=== PATIENT | male | born 1940 | race Caucasian/White ===

== ENCOUNTER 2017-09-08 17:00 | Inpatient (IN) | payer MEDICARE ==
[~2017-09-08] VITALS: Ht 172.7 cm; Wt 80.6 kg
[~2017-09-08 17:00] MED LIST: ALEN70TA13; ASPI-1265 PO; CALC-942 PO; CLOP75TA35 PO; DOCU-28 PO; FLO0.4C PO; HC A30CR2 RC; HYDR-3964 PO; HYDR-565 PO; HYDR200T84 PO; IBUP-1986 PO; KEN0.1O TP; LISI-234 PO; LISI-600 PO; PRED1TAB PO; SILD100T PO
[2017-09-08 20:28] LABS: BASOPHILS % (AUTO) 0.3 % (0-1); EOSINOPHILS # (AUTO) 0.2 X10'3 (0-0.9); HEMATOCRIT 42.6 % (42.0-52.0); HEMOGLOBIN 14.4 g/dl (14.0-17.9); LYMPHOCYTES # (AUTO) 1.9 X10'3 (1.1-4.8); LYMPHOCYTES % (AUTO) 23.1 % (21-51); MEAN CORPUSCULAR HEMOGLOBIN 30.9 PG (27.0-31.0); MEAN CORPUSCULAR HGB CONC 33.8 % (33.0-36.5); MEAN CORPUSCULAR VOLUME 91.4 FL (78-98); MEAN PLATELET VOLUME 7.2 FL (7.4-10.4); MONOCYTES # (AUTO) 0.8 X10'3 (0-0.9); MONOCYTES % (AUTO) 9.9 % (2-12); NEUTROPHILS # (AUTO) 5.2 X10'3 (1.8-7.7); NEUTROPHILS % (AUTO) 64.7 % (42-75); PLATELET COUNT 266 X10'3 (140-440); RED BLOOD COUNT 4.67 X10'6 (4.70-6.10); RED CELL DISTRIBUTION WIDTH 13.9 % (11.5-14.5)
[2017-09-08 20:41] LABS: INR 1.1 INR; PARTIAL THROMBOPLASTIN TIME 26 SECONDS (22-32); PROTHROMBIN TIME 11.3 SECONDS (9.0-12.0)
[2017-09-08 20:44] LABS: ANION GAP 8 (8-16); BILIRUBIN,TOTAL 0.7 MG/DL (0.1-1.0); BLOOD UREA NITROGEN 14 MG/DL (7-18); BUN/CREATININE RATIO 13.1 (5.4-32.0); CALCIUM 9.5 MG/DL (8.5-10.1); CHLORIDE 102 MMOL/L (99-107); CREATININE 1.07 MG/DL (0.60-1.10); GLUCOSE 101 MG/DL (70-104); POTASSIUM 3.8 MMOL/L (3.5-5.1); SODIUM 140 MMOL/L (135-145); eGFR 67 ML/MIN
[2017-09-08 20:45] LABS: ALANINE AMINOTRANSFERASE 26 U/L (12-78); ALBUMIN 4.5 G/DL (3.4-5.0); ALBUMIN/GLOBULIN RATIO 1.3 (1.1-1.5); ALKALINE PHOSPHATASE 50 IU/L (46-116); ASPARTATE AMINO TRANSFERASE 17 U/L (10-37)
[2017-09-08] MEDS ORDERED: temazepam 15mg capsule PO PRN (21:00)
[2017-09-08] MEDS ORDERED: LISI1TAB13 PO (21:09)
[2017-09-08] MEDS ORDERED: LISI-600 PO (21:09)
[2017-09-08] MEDS ORDERED: COLC0.6C3 (21:14)
[2017-09-08] MEDS ORDERED: VITC500T PO (21:14)
[2017-09-08] MEDS ORDERED: CAL1TABL8 PO (21:14)
[2017-09-08] MEDS ORDERED: FINA5TAB11 PO (21:14)
[2017-09-08] MEDS ORDERED: CARV-49 PO (21:14)
[2017-09-08] MEDS ORDERED: MULT-1141 PO (21:14)
[2017-09-08] MEDS ORDERED: CHOL10002 PO (21:14)
[2017-09-08] MEDS ORDERED: ALLO100T PO (21:14)
[2017-09-08] MEDS ORDERED: AMLO2.5T PO (21:14)
[2017-09-08] MEDS ORDERED: SIMV20TA5 PO (21:14)
[2017-09-08] MEDS ORDERED: lisinopril 10 MG tablet PO ONE (21:45)
[2017-09-08] MEDS ORDERED: amoxicillin 250mg capsule PO ONE (21:45)
[2017-09-08] MEDS ORDERED: metoprolol tartrate 1mg/ml inj IV ONE (21:45)
[2017-09-08] MEDS ORDERED: metoprolol tartrate 50mg tablet PO STA (21:56)
[2017-09-08] MEDS ORDERED: ipratropium/albuterol 3ml nebule IH PRN (23:00)
[2017-09-08] MEDS ORDERED: dextrose 5%-1/2 normal saline 1,000 ML IV SCH (23:02)
[2017-09-08] MEDS ORDERED: HYDROcodone/acetaminophen 5mg/325mg tablet PO PRN (23:05)
[2017-09-08] MEDS ORDERED: metoclopramide 5 mg/ml inj IV PRN (23:05)
[2017-09-08] MEDS ORDERED: acetaminophen 325mg tablet PO PRN (23:05)
[2017-09-08] MEDS ORDERED: HYDROcodone/acetaminophen 10/325mg tab PO PRN (23:05)
[2017-09-08] MEDS ORDERED: diphenhydrAMINE 50 mg/ml inj IV PRN (23:05)
[2017-09-08] MEDS ORDERED: mag hydrox/Alum hydrox/simeth 30ml oral suspension PO PRN (23:05)
[2017-09-08] MEDS ORDERED: magnesium hydroxide 30ml (MOM) UD suspension PO PRN (23:05)
[2017-09-08] MEDS ORDERED: morphine sulfate 8 MG/ML SYRINGE IV PRN ×2 (23:05)
[2017-09-08] MEDS ORDERED: diphenhydrAMINE 25mg capsule PO PRN (23:05)
[2017-09-08] MEDS ORDERED: non-formulary drug (Alendronate Sodium 70 MG) SCH (23:05)
[2017-09-08] MEDS ORDERED: bisacodyl 10mg suppository rectal RC PRN (23:05)
[2017-09-08] MEDS ORDERED: acetaminophen 650mg rectal suppository RC PRN (23:05)
[2017-09-08] MEDS ORDERED: ondansetron/PF 4mg/2ml inj IV PRN (23:05)
[2017-09-08] MEDS ORDERED: azithromycin 250mg tablet PO SCH (23:43)
[2017-09-09 01:34] VITALS: BP 160/80
[2017-09-09] MEDS: cefTRIAXone 1g/NS 100ml IVPB 100 ML IV SCH ×2 (01:47→08:15)
[2017-09-09 02:42] LABS: BASOPHILS % (AUTO) 0.3 % (0-1); EOSINOPHILS # (AUTO) 0.2 X10'3 (0-0.9); EOSINOPHILS % (AUTO) 2.3 % (0-6); HEMATOCRIT 38.3 % (42.0-52.0); LYMPHOCYTES # (AUTO) 1.5 X10'3 (1.1-4.8); LYMPHOCYTES % (AUTO) 15.2 % (21-51); MEAN CORPUSCULAR HEMOGLOBIN 30.9 PG (27.0-31.0); MEAN CORPUSCULAR HGB CONC 33.8 % (33.0-36.5); MEAN CORPUSCULAR VOLUME 91.3 FL (78-98); MEAN PLATELET VOLUME 7.3 FL (7.4-10.4); MONOCYTES # (AUTO) 1.3 X10'3 (0-0.9); MONOCYTES % (AUTO) 12.8 % (2-12); NEUTROPHILS # (AUTO) 6.8 X10'3 (1.8-7.7); NEUTROPHILS % (AUTO) 69.4 % (42-75); PLATELET COUNT 244 X10'3 (140-440); RED CELL DISTRIBUTION WIDTH 14.1 % (11.5-14.5); WHITE BLOOD COUNT 9.8 X10'3 (4.5-11.0)
[2017-09-09 02:58] LABS: ALANINE AMINOTRANSFERASE 24 U/L (12-78); ALBUMIN 3.6 G/DL (3.4-5.0); ALBUMIN/GLOBULIN RATIO 1.2 (1.1-1.5); ALKALINE PHOSPHATASE 38 IU/L (46-116); ANION GAP 7 (8-16); ASPARTATE AMINO TRANSFERASE 16 U/L (10-37); BILIRUBIN,TOTAL 0.5 MG/DL (0.1-1.0); BLOOD UREA NITROGEN 17 MG/DL (7-18); BUN/CREATININE RATIO 17.7 (5.4-32.0); CALCIUM 8.8 MG/DL (8.5-10.1); CHLORIDE 105 MMOL/L (99-107); CREATININE 0.96 MG/DL (0.60-1.10); GLUCOSE 108 MG/DL (70-104); POTASSIUM 3.3 MMOL/L (3.5-5.1); SODIUM 141 MMOL/L (135-145); TOTAL CARBON DIOXIDE 28.8 MMOL/L (24-32); TOTAL PROTEIN 6.6 G/DL (6.4-8.2); eGFR 76 ML/MIN
[2017-09-09 05:00] VITALS: BP 169/81
[2017-09-09 07:30] VITALS: BP 150/87
[2017-09-09] MEDS ORDERED: pantoprazole 40mg Tablet.DR PO SCH (07:30)
[2017-09-09] MEDS ORDERED: amLODIPine 2.5mg tablet PO SCH (08:00)
[2017-09-09] MEDS ORDERED: dexamethasone sod phosphate 10mg/ml inj IV SCH (08:00)
[2017-09-09] MEDS ORDERED: finasteride 5mg tablet PO SCH (08:00)
[2017-09-09] MEDS ORDERED: heparin, porcine 5000 units/ml vial SQ SCH (08:00)
[2017-09-09] MEDS ORDERED: allopurinol 100mg tablet PO SCH (08:00)
[2017-09-09] MEDS ORDERED: carVEDilol 12.5mg tablet PO SCH (08:00)
[2017-09-09] MEDS ORDERED: lisinopril 20mg tablet PO SCH (08:00)
[2017-09-09] MEDS ORDERED: atorvastatin 10mg tablet PO SCH (08:00)
[2017-09-09] MEDS ORDERED: docusate sod 100mg capsule PO SCH (08:00)
[2017-09-09] MEDS ORDERED: aspirin 81mg tab.chew PO SCH ×2 (08:30)
[2017-09-09 10:00] VITALS: BP 146/79
[2017-09-09] MEDS ORDERED: AZIT500T5 PO (10:56)
[2017-09-09] MEDS ORDERED: PRED10TA23 PO (10:56)
== END 2017-09-09 12:00 | disposition home or self-care (01) | DRG 203 ==
LOC: ER 17:00 → ED HOLD 23:02 → ORTHO 4S 09-09 01:15
PROVIDERS: ADMIT Family Medicine; ATTEND Internal Medicine
DX: J20.9 Acute bronchitis, unspecified (principal); E66.9 Obesity, unspecified; J45.909 Unspecified asthma, uncomplicated; E78.00 Pure hypercholesterolemia, unspecified; E78.5 Hyperlipidemia, unspecified; I10 Essential (primary) hypertension; I25.10 Atherosclerotic heart disease of native coronary artery without angina pectoris; I25.2 Old myocardial infarction; Z90.49 Acquired absence of other specified parts of digestive tract; Z95.5 Presence of coronary angioplasty implant and graft; Z68.27 Body mass index [BMI] 27.0-27.9, adult; Z88.6 Allergy status to analgesic agent; Z79.899 Other long term (current) drug therapy; Z79.01 Long term (current) use of anticoagulants; Z79.82 Long term (current) use of aspirin
CPT/HCPCS: 36415; 71010; 80053; 83880; 84484; 85025; 85610; 85730; 87070; 87502; 87503; 94760; 99285; J0696; J1100; J1644

== ENCOUNTER 2019-05-02 13:37 | Inpatient (IN) | payer MEDICARE ==
[~2019-05-02] VITALS: Ht 172.7 cm; Wt 84.1 kg
[~2019-05-02 13:37] MED LIST changes: +ALLO100T PO; +AMLO2.5T4 PO; +AZIT500T9 PO; +CAL1TABL8 PO; -CALC-942 PO; +CARV-49 PO; +CHOL10002 PO; -CLOP75TA35 PO; +COLC0.6C3; -DOCU-28 PO; +FINA5TAB11 PO; -FLO0.4C PO; -HC A30CR2 RC; -HYDR-3964 PO; -HYDR-565 PO; -HYDR200T84 PO; -IBUP-1986 PO; -KEN0.1O TP; -LISI-234 PO; +LISI1TAB29 PO; +MULT-1141 PO; -PRED1TAB PO; -SILD100T PO; +SIMV20TA5 PO; +VITC500T PO
[2019-05-02] MEDS ORDERED: ondansetron/PF 4mg/2ml inj IV ONE (14:25)
[2019-05-02] MEDS ORDERED: normal saline 1000ML IV soln IVB ONE ×2 (14:25→15:15)
[2019-05-02 14:42] LABS: CLARITY,URINE CLEAR (Clear); COLOR,URINE YELLOW (Yellow); GLUCOSE, URINE NEGATIVE (Neg); KETONES,URINE NEGATIVE (Neg); LEUKOCYTE ESTERASE ,URINE NEGATIVE (Neg); NITRITES, URINE NEGATIVE (Neg); OCCULT BLOOD,URINE LARGE (Neg); PROTEIN,URINE NEGATIVE (Neg); UROBILINOGEN,URINE 0.2 E.U/dL (0.2-1.0)
[2019-05-02 14:45] LABS: UA COLLECTION TYPE URINAL
--- NOTE | 2019-05-02 14:47 | NUR ---
pt out to ct via wheelchair with activities director
[2019-05-02 14:53] LABS: BACTERIA,URINE NONE SEEN /HPF (Neg); MUCUS STRANDS NONE SEEN /LPF (Neg); SQUAMOUS EPITHELIAL CELL,UR FEW /LPF (FEW); WBC,URINE 0-4 /HPF (0-4)
[2019-05-02 14:54] LABS: RBC,URINE 50-100 /HPF (0-2)
[2019-05-02 14:58] LABS: BASOPHILS % (AUTO) 0.2 % (0-1); EOSINOPHILS # (AUTO) 0.2 X10'3 (0-0.9); EOSINOPHILS % (AUTO) 1.2 % (0-6); HEMATOCRIT 36.8 % (42.0-52.0); HEMOGLOBIN 12.4 g/dl (14.0-17.9); LYMPHOCYTES # (AUTO) 1.5 X10'3 (1.1-4.8); LYMPHOCYTES % (AUTO) 10.3 % (21-51); MEAN CORPUSCULAR HEMOGLOBIN 29.5 PG (27.0-31.0); MEAN CORPUSCULAR HGB CONC 33.8 g/dL (33.0-36.5); MEAN CORPUSCULAR VOLUME 87.1 FL (78-98); MEAN PLATELET VOLUME 6.5 FL (7.4-10.4); MONOCYTES # (AUTO) 1.3 X10'3 (0-0.9); MONOCYTES % (AUTO) 8.9 % (2-12); NEUTROPHILS # (AUTO) 11.2 X10'3 (1.8-7.7); NEUTROPHILS % (AUTO) 79.4 % (42-75); PLATELET COUNT 285 X10'3 (140-440); RED BLOOD COUNT 4.23 X10'6 (4.70-6.10); RED CELL DISTRIBUTION WIDTH 15.9 % (11.5-14.5); WHITE BLOOD COUNT 14.2 X10'3 (4.5-11.0)
[2019-05-02 15:10] LABS: ALANINE AMINOTRANSFERASE 24 U/L (12-78); ALBUMIN 3.6 G/DL (3.4-5.0); ALKALINE PHOSPHATASE 58 IU/L (46-116); ANION GAP 10 (8-16); ASPARTATE AMINO TRANSFERASE 13 U/L (10-37); BILIRUBIN,TOTAL 0.6 MG/DL (0.1-1.0); BLOOD UREA NITROGEN 22 MG/DL (7-18); CALCIUM 9.8 MG/DL (8.5-10.1); CHLORIDE 99 MMOL/L (99-107); CREATININE 1.22 MG/DL (0.60-1.10); GLUCOSE 99 MG/DL (70-104); POTASSIUM 3.6 MMOL/L (3.5-5.1); SODIUM 137 MMOL/L (135-145); TOTAL CARBON DIOXIDE 27.6 MMOL/L (24-32); TOTAL PROTEIN 7.2 G/DL (6.4-8.2); eGFR 57 ML/MIN
[2019-05-02] MEDS ORDERED: ciprofloxacin lact 400MG/200ML 200 ML IV SCH (15:15)
[2019-05-02] MEDS ORDERED: magnesium 4gm in 100ml NS 100 ML IV PRN (15:35)
[2019-05-02] MEDS: K and/or MAG REPLACEMENT MC SCH (15:35)
[2019-05-02] MEDS ORDERED: magnesium Cl slow-release 64mg tablet PO PRN (15:35)
[2019-05-02] MEDS ORDERED: diphenhydrAMINE 25mg capsule PO PRN (15:35)
[2019-05-02] MEDS ORDERED: potassium Cl 20 mEq SR tablet PO PRN ×2 (15:35)
[2019-05-02] MEDS ORDERED: mag hydrox/Alum hydrox/simeth 30ml oral suspension PO PRN (15:35)
[2019-05-02] MEDS ORDERED: ondansetron/PF 4mg/2ml inj IV PRN (15:35)
[2019-05-02] MEDS ORDERED: potassium CL 10mEq/100ml bag 100 ML IV PRN ×2 (15:35)
[2019-05-02] MEDS ORDERED: morphine 2 MG/ML inj. syringe IV PRN ×2 (15:35)
[2019-05-02] MEDS ORDERED: magnesium 2GM in 50ml NS 50 ML IV PRN (15:35)
[2019-05-02] MEDS ORDERED: magnesium hydroxide 30ml (MOM) UD suspension PO PRN (15:35)
[2019-05-02] MEDS ORDERED: acetaminophen 325mg tablet PO PRN (15:35)
[2019-05-02] MEDS ORDERED: diphenhydrAMINE 50 mg/ml inj IV PRN (15:35)
[2019-05-02] MEDS ORDERED: FLO0.4C PO (15:49)
[2019-05-02] MEDS ORDERED: LORA10TA61 PO (15:49)
[2019-05-02] MEDS ORDERED: HYDR200T80 PO (15:49)
[2019-05-02] MEDS ORDERED: SOLI5TAB2 PO (15:49)
[2019-05-02] MEDS ORDERED: FERR325T32 PO (15:49)
[2019-05-02] MEDS ORDERED: FLUT16SP2 BOTHNARES (15:49)
[2019-05-02] MEDS: metroNIDAZOLE-Flagyl 500mg/NS 100 ML IV SCH ×2 (16:36→23:10)
[2019-05-02] MEDS: dextrose 5%-normal saline 1,000 ML IV SCH (17:46)
--- NOTE | 2019-05-02 19:08 | NUR ---
Received report from Andreas in the ER. Pt arrived on the unit at @1900 in stable condition. Pt was able to transfer from [facility] to bed on his own. D5NS was locked and not running during transfer. Pt currently has no signs of distress, will continue to monitor.
[2019-05-02 19:15] VITALS: BP 159/75
[2019-05-02] MEDS: ciprofloxacin lact 400MG/200ML 200 ML IV SCH (20:02)
[2019-05-02] MEDS: heparin, porcine 5000 units/ml vial SQ SCH (20:15)
[2019-05-02] MEDS ORDERED: non-formulary drug (Alendronate Sodium 70 MG) SCH (22:10)
[2019-05-02] MEDS: diatr meglu/diatrizoate 30ml oral sol.-(3 dose) bottle PO SCH (23:10)
[2019-05-02] MEDS: tamsulosin 0.4mg capsule PO SCH (23:10)
[2019-05-02] MEDS: oxybutynin 5mg tablet PO SCH (23:10)
[2019-05-03] VITALS: BP 142/64
[2019-05-03] MEDS: dextrose 5%-normal saline 1,000 ML IV SCH ×3 (01:35→22:12)
[2019-05-03 04:45] LABS: BASOPHILS % (AUTO) 0.4 % (0-1); EOSINOPHILS # (AUTO) 0.2 X10'3 (0-0.9); HEMATOCRIT 32.7 % (42.0-52.0); HEMOGLOBIN 11.1 g/dl (14.0-17.9); LYMPHOCYTES # (AUTO) 1.6 X10'3 (1.1-4.8); LYMPHOCYTES % (AUTO) 15.9 % (21-51); MEAN CORPUSCULAR HEMOGLOBIN 30.1 PG (27.0-31.0); MEAN CORPUSCULAR HGB CONC 33.9 g/dL (33.0-36.5); MEAN CORPUSCULAR VOLUME 88.8 FL (78-98); MEAN PLATELET VOLUME 6.9 FL (7.4-10.4); MONOCYTES # (AUTO) 1.3 X10'3 (0-0.9); MONOCYTES % (AUTO) 13.1 % (2-12); NEUTROPHILS # (AUTO) 6.9 X10'3 (1.8-7.7); NEUTROPHILS % (AUTO) 68.6 % (42-75); PLATELET COUNT 230 X10'3 (140-440); RED BLOOD COUNT 3.68 X10'6 (4.70-6.10); RED CELL DISTRIBUTION WIDTH 15.7 % (11.5-14.5)
[2019-05-03 05:12] LABS: ALANINE AMINOTRANSFERASE 17 U/L (12-78); ALBUMIN 2.8 G/DL (3.4-5.0); ALBUMIN/GLOBULIN RATIO 0.9 (1.1-1.5); ALKALINE PHOSPHATASE 43 IU/L (46-116); ANION GAP 5 (8-16); ASPARTATE AMINO TRANSFERASE 14 U/L (10-37); BILIRUBIN,TOTAL 0.4 MG/DL (0.1-1.0); BLOOD UREA NITROGEN 16 MG/DL (7-18); BUN/CREATININE RATIO 14.7 (5.4-32.0); CALCIUM 8.2 MG/DL (8.5-10.1); CHLORIDE 107 MMOL/L (99-107); CHOL/HDL RATIO 1.9 (0.00-4.99); CHOLESTEROL 72 MG/DL (0-200); CREATININE 1.09 MG/DL (0.60-1.10); GLUCOSE 109 MG/DL (70-104); HDL CHOLESTEROL 37 MG/DL (35-60); LDL CHOLESTEROL 28 MG/DL (50-100); MAGNESIUM 1.8 MG/DL (1.5-2.4); PHOSPHORUS 3.3 MG/DL (2.3-4.5); POTASSIUM 3.6 MMOL/L (3.5-5.1); SODIUM 143 MMOL/L (135-145); TOTAL CARBON DIOXIDE 30.6 MMOL/L (24-32); TOTAL PROTEIN 5.8 G/DL (6.4-8.2); TRIGLYCERIDES 55 MG/DL (20-135); eGFR 65 ML/MIN
--- NOTE | 2019-05-03 06:31 | NUR ---
Problems reprioritized. Patient report given, questions answered & plan of care reviewed with Denise MERINO.
--- NOTE | 2019-05-03 06:41 | NUR ---
Patient in room [facility]. I have received report from dalton sánchez and had the opportunity to ask questions and assume patient care.
[2019-05-03] MEDS: diatr meglu/diatrizoate 30ml oral sol.-(3 dose) bottle PO SCH ×2 (07:30→09:31)
[2019-05-03] MEDS: ciprofloxacin lact 400MG/200ML 200 ML IV SCH (07:31)
[2019-05-03] MEDS: oxybutynin 5mg tablet PO SCH ×2 (07:35→20:42)
[2019-05-03] MEDS: allopurinol 100mg tablet PO SCH (07:36)
[2019-05-03] MEDS: vitamin D (cholecalciferol) 1,000 unit tablet PO SCH (07:36)
[2019-05-03] MEDS: ferrous sulfate 325mg tablet PO SCH (07:38)
[2019-05-03] MEDS: HYDROchlorothiazide 25mg tablet PO SCH (07:38)
[2019-05-03] MEDS: lisinopril 20mg tablet PO SCH (07:38)
[2019-05-03] MEDS: multivitamins, therapeutics tablet PO SCH (07:39)
[2019-05-03] MEDS: carvedilol 6.25mg tablet PO SCH (07:40)
[2019-05-03] MEDS: loratadine 10mg tablet PO SCH (07:40)
[2019-05-03] MEDS: ascorbic acid 500mg tablet PO SCH (07:40)
[2019-05-03] MEDS: amLODIPine 2.5mg tablet PO SCH (07:40)
[2019-05-03] MEDS: fluticasone nasal spray 16GM bottle NS SCH (07:42)
[2019-05-03] MEDS: colchicine 0.6mg tablet PO SCH (07:43)
[2019-05-03] MEDS: finasteride 5mg tablet PO SCH (07:44)
[2019-05-03] MEDS: hydroxychloroquine 200mg tablet PO SCH ×2 (07:44→20:42)
[2019-05-03] MEDS: [UNRECOGNIZED DRUG - OTHER] PO SCH (07:52)
[2019-05-03] MEDS: heparin, porcine 5000 units/ml vial SQ SCH ×2 (08:00→20:48)
[2019-05-03] MEDS: K and/or MAG REPLACEMENT MC SCH (08:00)
[2019-05-03] MEDS: aspirin 81mg tab.chew PO SCH (08:00)
[2019-05-03 08:04] VITALS: BP 132/59
[2019-05-03] MEDS: metroNIDAZOLE-Flagyl 500mg/NS 100 ML IV SCH ×2 (08:55→09:00)
[2019-05-03] MEDS ORDERED: iohexol 300mg/ml 100ml inj. ONE (09:38)
[2019-05-03 11:19] VITALS: BP 122/62
[2019-05-03] MEDS: metroNIDAZOLE 500mg tablet PO SCH (16:35)
--- NOTE | 2019-05-03 18:42 | NUR ---
patient went for CT of abdomen and pelvis, seen by DR Frey, clear liquid diet ordered. patient to continue care. Report given to Arlet MERINO
--- NOTE | 2019-05-03 18:46 | NUR ---
Patient in room [facility]. I have received report from Denise MERINO and had the opportunity to ask questions and assume patient care.
[2019-05-03 20:00] VITALS: BP 155/73
[2019-05-03] MEDS: tamsulosin 0.4mg capsule PO SCH (20:42)
[2019-05-03] MEDS ORDERED: lisinopril 20mg tablet PO SCH (21:00)
[2019-05-03] MEDS ORDERED: atorvastatin 10mg tablet PO SCH (21:00)
[2019-05-03] MEDS: ciprofloxacin 250mg tablet PO SCH (22:13)
[2019-05-03 23:48] VITALS: BP 143/59
[2019-05-04] MEDS: metroNIDAZOLE 500mg tablet PO SCH ×2 (00:06→07:23)
[2019-05-04 04:42] LABS: BASOPHILS % (AUTO) 0.6 % (0-1); EOSINOPHILS # (AUTO) 0.3 X10'3 (0-0.9); EOSINOPHILS % (AUTO) 3.9 % (0-6); HEMATOCRIT 32.3 % (42.0-52.0); HEMOGLOBIN 10.9 g/dl (14.0-17.9); LYMPHOCYTES # (AUTO) 1.6 X10'3 (1.1-4.8); MEAN CORPUSCULAR HEMOGLOBIN 29.8 PG (27.0-31.0); MEAN CORPUSCULAR HGB CONC 33.6 g/dL (33.0-36.5); MEAN CORPUSCULAR VOLUME 88.5 FL (78-98); MEAN PLATELET VOLUME 6.6 FL (7.4-10.4); MONOCYTES # (AUTO) 0.9 X10'3 (0-0.9); MONOCYTES % (AUTO) 12.5 % (2-12); NEUTROPHILS # (AUTO) 4.4 X10'3 (1.8-7.7); PLATELET COUNT 218 X10'3 (140-440); RED BLOOD COUNT 3.65 X10'6 (4.70-6.10); RED CELL DISTRIBUTION WIDTH 15.8 % (11.5-14.5); WHITE BLOOD COUNT 7.2 X10'3 (4.5-11.0)
[2019-05-04 05:05] LABS: ALANINE AMINOTRANSFERASE 18 U/L (12-78); ALBUMIN 2.7 G/DL (3.4-5.0); ALBUMIN/GLOBULIN RATIO 0.9 (1.1-1.5); ALKALINE PHOSPHATASE 42 IU/L (46-116); ANION GAP 6 (8-16); ASPARTATE AMINO TRANSFERASE 13 U/L (10-37); BILIRUBIN,TOTAL 0.3 MG/DL (0.1-1.0); BLOOD UREA NITROGEN 10 MG/DL (7-18); CALCIUM 8.2 MG/DL (8.5-10.1); CHLORIDE 109 MMOL/L (99-107); GLUCOSE 109 MG/DL (70-104); MAGNESIUM 1.6 MG/DL (1.5-2.4); PHOSPHORUS 2.6 MG/DL (2.3-4.5); POTASSIUM 3.3 MMOL/L (3.5-5.1); SODIUM 144 MMOL/L (135-145); TOTAL CARBON DIOXIDE 29.2 MMOL/L (24-32); TOTAL PROTEIN 5.8 G/DL (6.4-8.2); eGFR 72 ML/MIN
--- NOTE | 2019-05-04 06:12 | NUR ---
Patient in room [facility]. I have received report from dalton MERINO and had the opportunity to ask questions and assume patient care.
--- NOTE | 2019-05-04 06:28 | NUR ---
Problems reprioritized. Patient report given, questions answered & plan of care reviewed with Denise MERINO.
[2019-05-04 07:00] VITALS: BP 150/70
[2019-05-04] MEDS: fluticasone nasal spray 16GM bottle NS SCH (07:20)
[2019-05-04] MEDS: aspirin 81mg tab.chew PO SCH (07:21)
[2019-05-04] MEDS: loratadine 10mg tablet PO SCH (07:21)
[2019-05-04] MEDS: carvedilol 6.25mg tablet PO SCH (07:22)
[2019-05-04] MEDS: colchicine 0.6mg tablet PO SCH (07:22)
[2019-05-04] MEDS: ferrous sulfate 325mg tablet PO SCH (07:23)
[2019-05-04] MEDS: oxybutynin 5mg tablet PO SCH (07:23)
[2019-05-04] MEDS: HYDROchlorothiazide 25mg tablet PO SCH (07:24)
[2019-05-04] MEDS: amLODIPine 2.5mg tablet PO SCH (07:25)
[2019-05-04] MEDS: [UNRECOGNIZED DRUG - OTHER] PO SCH (07:26)
[2019-05-04] MEDS: multivitamins, therapeutics tablet PO SCH (07:27)
[2019-05-04] MEDS: hydroxychloroquine 200mg tablet PO SCH (07:27)
[2019-05-04] MEDS: finasteride 5mg tablet PO SCH (07:27)
[2019-05-04] MEDS: ascorbic acid 500mg tablet PO SCH (07:28)
[2019-05-04] MEDS: allopurinol 100mg tablet PO SCH (07:29)
[2019-05-04] MEDS: lisinopril 20mg tablet PO SCH (07:29)
[2019-05-04] MEDS: vitamin D (cholecalciferol) 1,000 unit tablet PO SCH (07:29)
[2019-05-04] MEDS: heparin, porcine 5000 units/ml vial SQ SCH (07:32)
[2019-05-04] MEDS: dextrose 5%-normal saline 1,000 ML IV SCH (07:37)
[2019-05-04] MEDS: K and/or MAG REPLACEMENT MC SCH (08:00)
[2019-05-04] MEDS: ciprofloxacin 250mg tablet PO SCH (10:44)
[2019-05-04 11:19] VITALS: BP 149/63
[2019-05-04] MEDS ORDERED: CIPR250T4 PO (13:28)
[2019-05-04] MEDS ORDERED: METR500T PO (13:28)
[2019-05-04] MEDS ORDERED: DOCU-148 PO (13:30)
[2019-05-04] MEDS ORDERED: POLY17PO10 PO (13:30)
--- NOTE | 2019-05-04 14:33 | NUR ---
patient seen by Dr Frey is for discharge. Tolerated a full liquid diet. All DC instructions given with diet recommendations. spouse in room. patient DC home with spouse via private car to home .
== END 2019-05-04 14:00 | disposition home or self-care (01) | DRG 392 ==
LOC: ER 13:38 → SUR 3N 18:54 → CMPBEDREQ 19:43
PROVIDERS: ADMIT Family Medicine; ATTEND Family Medicine
PROC: BW211ZZ Computerized Tomography (CT Scan) of Abdomen and Pelvis using Low Osmolar Contrast (ICD-10-PCS; principal; 2019-05-03)
DX: K57.20 Diverticulitis of large intestine with perforation and abscess without bleeding (principal); I25.10 Atherosclerotic heart disease of native coronary artery without angina pectoris; I10 Essential (primary) hypertension; E78.5 Hyperlipidemia, unspecified; M35.3 Polymyalgia rheumatica; E78.00 Pure hypercholesterolemia, unspecified; M10.9 Gout, unspecified; K80.80 Other cholelithiasis without obstruction; N32.81 Overactive bladder; N40.1 Benign prostatic hyperplasia with lower urinary tract symptoms; Z95.5 Presence of coronary angioplasty implant and graft; Z90.49 Acquired absence of other specified parts of digestive tract; Z88.6 Allergy status to analgesic agent; Z79.899 Other long term (current) drug therapy; Z79.82 Long term (current) use of aspirin; Z87.891 Personal history of nicotine dependence
CPT/HCPCS: 36415; 74176; 74177; 80053; 80061; 81001; 83036; 83605; 83735; 84100; 84145; 85025; 86885; 86900; 86901; 87040; 87081; 92508; 92616; 94667; 96361; 96374; 96375; 97161; 97530; 99285; G0378; J0744; J1644; J2270; J2405; J3490; J7042; Q9963; Q9967